=== PATIENT | male | born 1995 | race Two or more races ===

== ENCOUNTER 2019-06-20 11:44 | Emergency (ER) | payer MEDICAID ==
[~2019-06-20] VITALS: Ht 188 cm; Wt 70.3 kg
[2019-06-20 12:10] VITALS: BP 134/87
== END 2019-06-20 12:55 | disposition home or self-care (01) ==
LOC: ER 11:44
DX: S29.011A Strain of muscle and tendon of front wall of thorax, initial encounter (principal); F17.210 Nicotine dependence, cigarettes, uncomplicated; V43.52XA Car driver injured in collision with other type car in traffic accident, initial encounter; Y93.89 Activity, other specified; Y92.89 Other specified places as the place of occurrence of the external cause; Y99.8 Other external cause status
CPT/HCPCS: 70450; 71101

== ENCOUNTER 2019-06-22 14:23 | Emergency (ER) | payer MEDICAID ==
[~2019-06-22] VITALS: Ht 188 cm; Wt 70.3 kg
[2019-06-22 14:42] VITALS: BP 133/87
== END 2019-06-22 16:11 | disposition home or self-care (01) ==
LOC: ER 14:26
DX: S29.011A Strain of muscle and tendon of front wall of thorax, initial encounter (principal); F17.210 Nicotine dependence, cigarettes, uncomplicated; V49.9XXA Car occupant (driver) (passenger) injured in unspecified traffic accident, initial encounter; Y93.89 Activity, other specified; Y92.89 Other specified places as the place of occurrence of the external cause; Y99.8 Other external cause status
CPT/HCPCS: 81002

== ENCOUNTER 2019-09-25 18:45 | Emergency (ER) | payer MEDICAID, OTHER ==
[~2019-09-25] VITALS: Ht 188 cm; Wt 72.6 kg
[2019-09-25] MEDS ORDERED: LIDOCAINE W/ EPINEPHRINE 2% INJ 20ML VIAL ID ONE (20:00)
[2019-09-25] MEDS ORDERED: TETANUS-DIPTH-ACEL PERTUSSIS 0.5ML SYRG IM ONE (20:00)
[2019-09-26 00:07] VITALS: BP 132/77
== END 2019-09-26 00:09 | disposition home or self-care (01) ==
LOC: ER 18:45
DX: S01.511A Laceration without foreign body of lip, initial encounter (principal); F17.210 Nicotine dependence, cigarettes, uncomplicated; Y04.2XXA Assault by strike against or bumped into by another person, initial encounter; Y93.89 Activity, other specified; Y92.69 Other specified industrial and construction area as the place of occurrence of the external cause; Y99.8 Other external cause status
CPT/HCPCS: 12011; 90471; 90715